=== PATIENT | female | born 1940 | race Caucasian/White ===

== ENCOUNTER 2018-06-07 11:07 | Outpatient (CLI) | payer OTHER | END 2018-06-07 11:09 | disposition home or self-care (01) | LOC: SONOGRAMA 11:07 | DX: E04.1 Nontoxic single thyroid nodule (principal) ==

== ENCOUNTER 2024-05-22 11:34 | Emergency (ER) | payer OTHER ==
[~2024-05-22] VITALS: Ht 154.9 cm; Wt 76.2 kg
[2024-05-22] MEDS ORDERED: COZAAR25 MG (12:14)
[2024-05-22] MEDS ORDERED: AMLODIPINE-OLM1 EAC2 (12:15)
[2024-05-22] MEDS ORDERED: TRAMADOL HCL 50 MG TABLET PO ONE (13:00)
[2024-05-22 13:47] LABS: HEMATOCRIT 40.5 % (36.0-45.00); MEAN CELL VOLUME 85.3 fL (80.00-100.00); MEAN CORPUSCULAR HEMOGLOBIN 29.5 pg (27.00-32.0); MEAN CORPUSCULAR HGB CONC 34.6 g/dl (32.0-36.0); PLATELET COUNT 238 K/uL (150-450); RED BLOOD COUNT 4.75 M/uL (4.00-6.00); RED CELL DISTRIBUTION WIDTH 14.6 % (11.5-14.5)
[2024-05-22] MEDS ORDERED: PROBIOTIC1 EACH PO (14:20)
[2024-05-22] MEDS ORDERED: PEPCID AC20 MG PO (14:20)
[2024-05-22] MEDS ORDERED: BACTRIM DS TAB1 EACH PO (14:20)
[2024-05-22] MEDS ORDERED: MIRALAX510 GM PO (14:20)
== END 2024-05-22 14:24 | disposition home or self-care (01) ==
LOC: ER 11:36
PROVIDERS: General Practice
DX: R10.32 Left lower quadrant pain (principal); R10.9 Unspecified abdominal pain; I10 Essential (primary) hypertension; Z88.6 Allergy status to analgesic agent

== ENCOUNTER 2024-05-26 12:12 | Emergency (ER) | payer OTHER ==
[~2024-05-26] VITALS: Ht 152.4 cm; Wt 76.2 kg
[~2024-05-26 12:12] MED LIST: AMLODIPINE-OLM1 EAC2; BACTRIM DS TAB1 EACH PO; COZAAR25 MG; MIRALAX510 GM PO; PEPCID AC20 MG PO; PROBIOTIC1 EACH PO
[2024-05-26] MEDS ORDERED: LOSARTAN-HCTZ1 EAC2 PO (12:59)
[2024-05-26] MEDS ORDERED: AMLODIPINE-OLM1 EAC2 PO (13:00)
[2024-05-26] MEDS ORDERED: FOSAMAX70 MG PO (13:00)
[2024-05-26] MEDS ORDERED: DEXAMETHASONE SODIUM PHOSPHATE 4 MG/ML VIAL IM STA (15:37)
[2024-05-26] MEDS ORDERED: ORPHENADRINE CITRATE 30 MG/ML AMPUL IM STA (15:38)
[2024-05-26 16:07] LABS: HEMATOCRIT 42.4 % (36.0-45.00); HEMOGLOBIN 14.3 g/dL (12.0-15.00); MEAN CELL VOLUME 86.3 fL (80.00-100.00); MEAN CORPUSCULAR HGB CONC 33.6 g/dl (32.0-36.0); PLATELET COUNT 235 K/uL (150-450); RED BLOOD COUNT 4.92 M/uL (4.00-6.00); RED CELL DISTRIBUTION WIDTH 14.4 % (11.5-14.5)
[2024-05-26 16:30] LABS: PH,URINE 5.5 (5.0-8.0); URINE APPEARANCE Clear; URINE BILIRRUBIN Negative (NEGATIVE); URINE BLOOD Negative; URINE COLOR Yellow; URINE GLUCOSE Negative (NEGATIVE); URINE KETONE Negative (NEGATIVE); URINE LEUKOCYTE Negative; URINE NITRATE Negative; URINE PROTEIN Negative (NEGATIVE); URINE UROBILINOGEN 0.2 E.U./dl
[2024-05-26 16:31] LABS: URINE EPITHELIAL CELLS 12.7 uL (0.0-38.8)
[2024-05-26 16:34] LABS: URINE RBC 1.2 uL (0.0-20.8)
[2024-05-26] MEDS ORDERED: NORFLEX100MG PO (17:09)
== END 2024-05-26 17:23 | disposition home or self-care (01) ==
LOC: ER 12:14
DX: N39.0 Urinary tract infection, site not specified (principal); I10 Essential (primary) hypertension; Z88.6 Allergy status to analgesic agent